=== PATIENT | male | born 1985 | race Caucasian/White ===

== ENCOUNTER 2020-09-20 01:00 | Emergency (ER) | payer MEDICAID, SELFPAY ==
[2020-09-20 01:13] VITALS: BP 185/98; PULSE 104; RESP 18; TEMP 36.6; O2SAT 100; BMI 35.5
[2020-09-20 01:22] VITALS: BP 185/98; PULSE 103; RESP 18; TEMP 36.6; O2SAT 100
--- NOTE | 2020-09-20 02:07 | ED_ITS ---
HPI - Eye Problem General Chief complaint: Eye Problems Stated complaint: EYE PRESSURE Time Seen by Provider: 09/20/20 02:07 Source: patient Mode of arrival: ambulatory History of Present Illness HPI Narrative: This is a 35-year-old male with significant past medical history of type 1 diabetes, last A1c-5.4, who presents with onset increasing centralized blurred vision in the right eye that has been painless and has not been associated with any pain on movement, fevers, chills. Patient states that the centralized blurring has continued to worsen and that is been associated with some floaters. Related Data Home Medications Medication Instructions Recorded Confirmed insulin glargine [Lantus Solostar 15 unit SUBCUT BEDTIME 09/20/20 09/20/20 U-100 Insulin] insulin lispro [Humalog KwikPen See Protocol SUBCUT TIDAC 09/20/20 09/20/20 Insulin] losartan 50 mg PO DAILY 09/20/20 09/20/20 Allergies Allergy/AdvReac Type Severity Reaction Status Date / Time No Known Allergies Allergy Verified 09/20/20 01:11 [No Known Allergies*] Review of Systems Review of Systems: Pertinent positives and negatives as stated in HPI 10 point review of systems is otherwise negative. PMFSH Past Medical History Source: nursing notes reviewed Medical History Diabetes Social History Social History Alcohol intake: never Smoking Status: Never smoker Use of substances other than those prescribed or required for medical reasons: No Advance Directives: No Advance Directives Information Provided: No Physical Exam Vital Signs: Vital Signs: Last Vital Signs Temp 98.2 F 09/20/20 03:20 Pulse 91 09/20/20 03:20 Resp 18 09/20/20 03:20 BP 164/86 H 09/20/20 03:20 Pulse Ox 98 09/20/20 03:20 Body Mass Index 35.5 VITAL SIGNS: Reviewed. GENERAL: Well developed, well nourished, in no acute distress. HEAD: Normocephalic/atraumatic, EYES: PERRLA, EOMI intact without pain, no nystagmus/pallor/icterus noted, no conjunctival injection, OD: 21 OS: 23 OROPHARYNX: no oral lesions noted, posterior pharynx clear NECK: Supple, no adenopathy LUNGS: Normal breath sounds. No adventitious sounds or accessory muscle use. S pO2<98> CARDIOVASCULAR: Regular rate and rhythm without noted murmurs ABDOMEN: OBESE, Soft, non-tender, non-distended with bowel sounds. NEUROLOGIC: Alert and oriented x 4. . Course Course Course Narrative: This is a 35-year-old male with history and clinical presentation consistent with CRVO. OD:---- OS: 20/30 I discussed this case with Dr. Tamayo who recommends no acute interventions at this time and he will see the patient in the office on Monday. Patient was informed all results and plans and acknowledges understanding. Reevaluation(s) Reevaluation #1: Ophthalmology paged. Time: 02:25 Discharge Plan Discharge Clinical Impression: CRVO (central retinal vein occlusion) Qualifiers: Retinal vein occlusion complication status: unspecified complication status Laterality: right Qualified Code(s): H34.8112 - Central retinal vein occlusion, right eye, stable Patient Disposition: Home, Self-Care Instructions: Blurred Vision (ED) Additional Instructions: 1. Please resume all home medications as prescribed. 2. Please call the office Dr. Tamayo on Monday as they are expecting you and will arrange for you to be seen that day. Prescriptions: No Action losartan 50 mg tablet 50 mg PO DAILY RF: 0 insulin lispro [Humalog KwikPen Insulin] 100 unit/mL insulin pen See Protocol unit subcut TIDAC RF: 0 Lantus Solostar U-100 Insulin 100 unit/mL (3 mL) insulin pen 15 unit subcut BEDTIME RF: 0 Referrals: Yamil Tamayo [Physician] - 09/21/20 8:00 am (Evaluation and management right blurred vision suspected CRVO) Stand Alone Forms: Work/School Release
[2020-09-20 02:14] VITALS: BP 175/105; PULSE 96; RESP 18; TEMP 36.9; O2SAT 98
[2020-09-20 03:20] VITALS: BP 164/86; PULSE 91; RESP 18; TEMP 36.8; O2SAT 98
== END 2020-09-20 04:22 | disposition home or self-care (01) ==
PROVIDERS: Emergency Provider Student in an Organized Health Care Education/Training Program
DX: H34.8112 Central retinal vein occlusion, right eye, stable (principal); H53.8 Other visual disturbances; E10.9 Type 1 diabetes mellitus without complications; Z79.4 Long term (current) use of insulin
CPT/HCPCS: 99284

== ENCOUNTER 2020-10-31 08:51 | Outpatient (REF) | payer MEDICAID, SELFPAY ==
[2020-10-31 10:24] LABS: Hemoglobin 10.4 g/dl (14.0-18.0); Mean Corpuscular HGB Conc 33.5 g/dl (31.0-36.0); Mean Corpuscular Hemoglobin 29.7 pg (27.0-33.0); Mean Corpuscular Volume 88.6 fL (80-98); Mean Platelet Volume 11.1 fL (9.4-12.4); Platelet Count 202 X10*3/uL (160-400); Red Cell Distribution Width 12.1 % (11.0-16.0); White Blood Count 5.5 X10*3/uL (4.8-10.8)
[2020-10-31 10:39] LABS: Alanine Aminotransferase 20 U/L (0-40); Alkaline Phosphatase 84 U/L (39-117); Anion Gap 14 (12-20); Aspartate Amino Transferase 14 U/L (5-37); Bilirubin Total 0.7 mg/dL (0.0-1.0); Blood Urea Nitrogen 63 mg/dL (9-16); Calcium 8.7 mg/dL (8.4-10.2); Carbon Dioxide 21 mmol/L (22-29); Chloride 110 mmol/L (96-108); Estimated Glomerular Filt Rate 18; Glucose Fasting 126 mg/dL (60-99); Potassium 5.5 mmol/L (3.3-5.1); Sodium 139 mmol/L (135-145)
== END 2020-10-31 08:52 | disposition home or self-care (01) ==
LOC: HO.LAB 08:51
PROVIDERS: PCP Registered Nurse; Visit Provider Registered Nurse
DX: Z01.818 Encounter for other preprocedural examination (principal)
CPT/HCPCS: 36415; 80053; 85027

== ENCOUNTER 2020-11-04 15:07 | Outpatient (REF) | payer MEDICAID, SELFPAY ==
[2020-11-04 16:49] LABS: Anion Gap 14 (12-20); Blood Urea Nitrogen 56 mg/dL (9-16); Calcium 9.2 mg/dL (8.4-10.2); Carbon Dioxide 22 mmol/L (22-29); Chloride 110 mmol/L (96-108); Estimated Glomerular Filt Rate 21; Glucose Random 123 mg/dL (60-115); Potassium 5.1 mmol/L (3.3-5.1); Sodium 141 mmol/L (135-145)
== END 2020-11-04 15:08 | disposition home or self-care (01) ==
LOC: HO.LAB 15:07
PROVIDERS: PCP Registered Nurse; Visit Provider Registered Nurse
DX: N17.9 Acute kidney failure, unspecified (principal)
CPT/HCPCS: 36415; 80048

== ENCOUNTER 2020-12-28 08:15 | Day surgery (SDC) | payer MEDICAID, SELFPAY ==
[2020-12-22 11:42] VITALS: BMI 33.9
--- NOTE | 2020-12-23 16:43 | MHC.SHP ---
Pre-Procedural Eval Section A The patient is an INPATIENT: No The History & Physical has been completed within 30 days and I have reviewed it.: Yes Section B Chief Complaint: age related cataract Allergies: Allergies Allergy/AdvReac Type Severity Reaction Status Date / Time No Known Allergies Allergy Verified 12/22/20 11:21 [No Known Allergies*] Plan Diagnosis/Plan: Unchanged I have reviewed the history and physical and performed a pertinent physical examination on my patient. No changes have occurred unless specified.
--- NOTE | 2020-12-25 13:52 | HO.ANESPROP2 ---
Documented by User: Zleda Dukes 12/25/20 14:00 HPI - Anesthesia Eval Consult details Narrative: 35yo M for Right Cataract Extraction IOL Insertion PCP cleared [facility] Past Medical History Medical History Acute renal failure Bipolar disorder Diabetes Vitreous hemorrhage Surgical History Surgical History History of eye surgery Social History Social History Are you a primary care management associate to a significant other at home: No Do you presently have visiting nurse or other home services: No Alcohol intake: never Patient Tobacco Use Status: Never used Tobacco Use of substances other than those prescribed or required for medical reasons: No Have you been hit, kicked, punched, or otherwise hurt by someone within the past year? If so, by whom?: No Are you DNR?: No Advance Directives: No Advance Directives Information Provided: No Advance Directives on File: No Recently lost weight without trying: No Eating poorly because of decreased appetite: No Nutrition Risks: No Nutritional Risk Meds Allergies Allergy/AdvReac Type Severity Reaction Status Date / Time No Known Allergies Allergy Verified 12/22/20 11:21 [No Known Allergies*] Home Medications Medication Instructions Recorded Confirmed Last Taken Type insulin lispro [Humalog KwikPen See Protocol SUBCUT TIDAC 09/20/20 12/22/20 09/19/20 History Insulin] insulin degludec [Tresiba U-100 10 unit SUBCUT BEDTIME 12/22/20 12/22/20 Unknown History Insulin] Exam Exam Date and Time: December 25, 2020 1352 Height,Weight and Vital Signs: Height 5 ft 6 in Weight 95.254 kg Pertinent Lab Results Pertinent Lab Results: Laboratory Tests 10/31/20 11/04/20 09:04 15:13 WBC 5.5 Hgb 10.4 L Hct 31.0 L Plt Count 202 Sodium 141 Potassium 5.1 Chloride 110 H Carbon Dioxide 22 BUN 56 H Creatinine 3.33 H Assessment and Plan Assessment Anesthesia Assessment: Chart Reviewed Documented by User: Santo Nair 12/28/20 08:44 PMFSH Past Medical History Medical History Acute renal failure Bipolar disorder Diabetes Vitreous hemorrhage Surgical History Surgical History History of eye surgery Social History Social History Are you a primary care management associate to a significant other at home: No Do you presently have visiting nurse or other home services: No Alcohol intake: never Patient Tobacco Use Status: Never used Tobacco Use of substances other than those prescribed or required for medical reasons: No Have you been hit, kicked, punched, or otherwise hurt by someone within the past year? If so, by whom?: No Are you DNR?: No Advance Directives: No Advance Directives Information Provided: No Advance Directives on File: No Recently lost weight without trying: No Eating poorly because of decreased appetite: No Nutrition Risks: No Nutritional Risk Meds Allergies Allergy/AdvReac Type Severity Reaction Status Date / Time No Known Allergies Allergy Verified 12/22/20 11:21 [No Known Allergies*] Home Medications Medication Instructions Recorded Confirmed Last Taken Type insulin lispro [Humalog KwikPen See Protocol SUBCUT TIDAC 09/20/20 12/22/20 09/19/20 History Insulin] insulin degludec [Tresiba U-100 10 unit SUBCUT BEDTIME 12/22/20 12/22/20 Unknown History Insulin] Exam Airway Mallampati Class: II TM Dist: >3cm Neck ROM: Full Loose/Missing/Broken Teeth: No Heart: rrr+[id number] Lungs: cta b/l Assessment and Plan Assessment Anesthesia Assessment: Anesthesia Plan Discussed, PAT Visit and Chart Reviewed Final Anesthetic Review NPO: Yes ASA Class: II Final Preanesthetic Review: No Changes in Pt Med Stat, Meds/Allgs Chart Reviewed, Consent Obtained/Reviewed and Anes Risks/Benef Reviewed Patient Risk: Low Procedure Risk: Low Assessment/Block/Sedation in SS: Assess/Block/Sedation-SS Anesthetic Plan Anesthetic Plan: MAC: and Agree w/ Assess. and Plan Disposition: Standard PACU
[2020-12-28 08:23] VITALS: BP 180/99; PULSE 88; RESP 18; TEMP 36.4; O2SAT 97
[2020-12-28 08:33] LABS: Glucose, Whole Blood 127 mg/dL (60-115)
[2020-12-28] MEDS: Tropicamide 1 % Ophth Sol 3 ML BTL 1 DROP EYE-RIGHT ×3 (08:41→08:42)
[2020-12-28] MEDS: 0.9 % Sodium Chloride 500 ML 50 ML IV (08:41)
[2020-12-28] MEDS: Tetracaine HCl/PF 0.5% Oph Sol 4 ML DROPS 1 DROP EYE-RIGHT (08:41)
[2020-12-28] MEDS: Phenylephrine HCL 2.5% Oph SoL 2 ML BOTTLE 1 DROP EYE-RIGHT ×3 (08:41→08:42)
--- NOTE | 2020-12-28 09:42 | HO.PNOPHT ---
Ophthalmology Procedure Procedure Date of Service: 12/28/20 Ophthalmology Viscoelastic: Healtaisha Castillot Dual Pack Pro Ophthalmology Lenses: [id number] [id number] (22) Procedure Notes: PREOPERATIVE DIAGNOSIS: Decreased visual acuity right eye secondary to cataract POSTOPERATIVE DIAGNOSIS: Same PROCEDURE: Right cataract extraction with intraocular lens insertion SURGEON: Yamil Tamayo M.D. ANESTHESIA: Topical/MAC ESTIMATED BLOOD LOSS: None COMPLICATIONS: None After obtaining informed consent, the patient was brought to the operating room suite and placed in the supine position. After adequate sedation per anesthesia, topical drops of Tetracaine were given to the right eye. The eye was then prepped and draped in the usual sterile fashion. The operating room microscope was then positioned over the operative eye and a lid speculum placed. A paracentesis was created. Viscoelastic was then instilled into the anterior chamber. A three plane incision was then created temporally, utilizing a 2.85 mm keratome. Capsulotomy forceps were then utilized to create a circular tear capsulotomy. Hydrodissection and hydrodelineation were carried out until adequate mobilization of the nucleus occurred. Phacoemulsification was then utilized to remove the dense central nucleus followed by removal of the cortical material utilizing the automated aspiration irrigation unit. Viscoelastic was instilled into the posterior capsular bag followed by placement of a posterior chamber intraocular lens without difficulty. The residual Viscoelastic was then removed utilizing the automated IA machine. The wound was checked and found to be watertight. The patient tolerated the procedure well and the lid speculum was removed. Intracameral injection of Vigamox 0.1 mL followed by a subtenon injection of Kenalog-40 0.2 mL were administered. The patient will be seen in the a.m.
[2020-12-28 10:04] VITALS: BP 168/90; PULSE 87; RESP 16; TEMP 36.5; O2SAT 99
== END 2020-12-28 10:12 | disposition home or self-care (01) ==
PROVIDERS: PCP Registered Nurse; Visit Provider Ophthalmology
PROC: (CPT 66985; principal; 2020-12-28 10:00)
DX: H25.11 Age-related nuclear cataract, right eye (principal); H43.11 Vitreous hemorrhage, right eye; N17.8 Other acute kidney failure; I10 Essential (primary) hypertension; E55.9 Vitamin D deficiency, unspecified; E66.3 Overweight; E10.3593 Type 1 diabetes mellitus with proliferative diabetic retinopathy without macular edema, bilateral; E10.42 Type 1 diabetes mellitus with diabetic polyneuropathy; Z79.4 Long term (current) use of insulin
CPT/HCPCS: 66984; 82947; J2250; J3010; J3300; V2632